=== PATIENT | male | born 1995 | race Caucasian/White ===

== ENCOUNTER 2021-02-27 11:16 | Emergency (ER) | payer SELFPAY ==
[~2021-02-27] VITALS: Ht 190.5 cm; Wt 72.6 kg
--- NOTE | 2021-02-27 11:25 | NUR ---
BIBSELF, C/O ITCHY THROAT AND GENERALIZED SHAKING S/P EATING BREAD W/ NUTS. PATIENT A/OX4, BREATHING EVEN AND UNLABORED, NO SOB NOTED, NEEDS ATTENDED. PATIENT PULSE 0X 100% IN ROOM AIR.
[2021-02-27] MEDS ORDERED: predniSONE 20 MG TABLET ONE (11:43)
[2021-02-27] MEDS ORDERED: FAMOTIDINE (20 MG) 20 MG TABLET ONE (11:43)
[2021-02-27] MEDS ORDERED: predniSONE 10 MG TABLET PO ONE (12:00)
[2021-02-27] MEDS ORDERED: FAMOTIDINE (20 MG) 20 MG TABLET PO ONE (12:00)
[2021-02-27] MEDS ORDERED: EPIN0.3P3 IJ (12:02)
[2021-02-27] MEDS ORDERED: ONDANSETRON 4 MG TAB.RAPDIS ONE (12:24)
--- NOTE | 2021-02-27 12:53 | NUR ---
PATIENT A/OX4, BREATHING EVEN AND UNLABORED, NO SOB NOTED. NEEDS ATTENDED. KEPT COMFORTABLE. AMBULATES TO RESTROOM WITH NO DISCOMFORT.
--- NOTE | 2021-02-27 13:20 | NUR ---
Patient a/ox4, breathing even and unlabored, no sob noted, needs attended, kept comfortable. Ambulatory with a steady gait. Patient discharged to home in stable condition. Written and verbal after care instructions given. Patient verbalizes understanding of instruction.
[2021-02-27 13:22] VITALS: BP 136/66
== END 2021-02-27 13:22 | disposition home or self-care (01) ==
LOC: ER 11:20
DX: T78.1XXA Other adverse food reactions, not elsewhere classified, initial encounter (principal); Z91.010 Allergy to peanuts; Z60.2 Problems related to living alone; X58.XXXA Exposure to other specified factors, initial encounter
CPT/HCPCS: 99283; J7512 ×2; Q0162